=== PATIENT | female | born 1980 | race Hispanic/Latino ===

== ENCOUNTER → 2020-01-17 | Outpatient (CLI) | payer OTHER ==
[~2020-01-17] MED LIST: PREN-154 PO
[2020-01-17 10:36] LABS: HEMATOCRIT 37.4 % (36-48); MEAN CORPUSCULAR HEMOGLOBIN 32.7 pg (27.0-33.0); MEAN CORPUSCULAR HGB CONC 32.9 g/dL (32.0-36.0); MEAN CORPUSCULAR VOLUME 99.5 fL (79-99); RED BLOOD CELL COUNT(AUTO) 3.76 MIL/uL (4.00-5.50); RED CELL DISTRIBUTION WIDTH 14.6 % (11.0-15.5); WHITE BLOOD COUNT (AUTO) 7.5 K/uL (4.8-10.8)
[2020-01-17 10:52] LABS: ALBUMIN 3.1 g/dL (3.5-5.0); BILIRUBIN,TOTAL 0.5 mg/dL (0.2-1.0); CREATININE 0.5 mg/dL (0.5-1.5); POTASSIUM 3.6 mmol/L (3.5-5.1); TOTAL PROTEIN, SERUM 6.7 g/dL (6.0-8.3)
[2020-01-18 08:11] LABS: HEPATITIS Bs ANTIGEN SCREEN P Negative (Negative)
[2020-01-18 12:26] LABS: RAPID PLASMA REAGIN NONREACTIVE (NONREACTIVE)
== END | disposition home or self-care (01) ==
LOC: LAB 09:36
PROVIDERS: ATTEND Internal Medicine
DX: O09.519 Supervision of elderly primigravida, unspecified trimester (principal); Z3A.00 Weeks of gestation of pregnancy not specified
CPT/HCPCS: 36415; 80053; 82950; 85027; 86592; 86701; 86762; 86790; 86850; 86900; 86901; 87088; 87340; 87390

== ENCOUNTER → 2020-03-12 | Outpatient (CLI) | payer OTHER | END | disposition home or self-care (01) | LOC: LAB 11:04 | PROVIDERS: ATTEND Internal Medicine | DX: Z34.83 Encounter for supervision of other normal pregnancy, third trimester (principal); Z3A.37 37 weeks gestation of pregnancy | CPT/HCPCS: 87802 ==

== ENCOUNTER 2020-03-13 14:00 | Observation (INO) | payer OTHER | END 2020-03-24 15:00 | disposition home or self-care (01) | LOC: EDSTATUS 03-17 09:00 → LDH 03-24 12:57 | PROVIDERS: ADMIT Internal Medicine; ATTEND Internal Medicine | DX: O42.92 Full-term premature rupture of membranes, unspecified as to length of time between rupture and onset of labor (principal); R05 Cough; R50.9 Fever, unspecified; Z88.0 Allergy status to penicillin; Z88.2 Allergy status to sulfonamides; Z91.040 Latex allergy status; Z3A.38 38 weeks gestation of pregnancy | CPT/HCPCS: G0378 ×2 ==

== ENCOUNTER 2020-03-26 13:00 | Inpatient (IN) | payer OTHER ==
[~2020-03-26] VITALS: Ht 160 cm; Wt 72.6 kg
[2020-03-26] MEDS ORDERED: PROMETHAZINE HCL 25 MG/ML 1ML AMPULE IM PRN (15:15)
[2020-03-26] MEDS ORDERED: NALOXONE HCL 0.4 MG/1 ML ML IV PRN (15:15)
[2020-03-26] MEDS ORDERED: ROPIVACAINE 0.2% 100ML VIAL 100 ML EP SCH (15:15)
[2020-03-26] MEDS ORDERED: LACTATED RINGERS 500 ML 500 ML IV PRN (15:15)
[2020-03-26] MEDS ORDERED: OXYTOCIN-LR 20 UNITS/1000 ML 1,000 ML IV SCH (15:15)
[2020-03-26] MEDS ORDERED: EPHEDRINE SULFATE 50 MG/ML AMPULE IVP PRN (15:15)
[2020-03-26] MEDS ORDERED: MEPERIDINE-PF 50 MG/ML SYG IVP PRN (15:15)
[2020-03-26 17:30] LABS: HEMATOCRIT 36.2 % (36-48); MEAN CORPUSCULAR HGB CONC 33.1 g/dL (32.0-36.0); MEAN CORPUSCULAR VOLUME 96.5 fL (79-99); RED BLOOD CELL COUNT(AUTO) 3.75 MIL/uL (4.00-5.50); RED CELL DISTRIBUTION WIDTH 14.6 % (11.0-15.5); WHITE BLOOD COUNT (AUTO) 10.1 K/uL (4.8-10.8)
[2020-03-26 17:38] LABS: APPEARANCE,URINE Clear (CLEAR); BILIRUBIN,URINE Negative (NEGATIVE); COLOR,URINE Yellow (YELLOW); GLUCOSE, URINE (UA) Negative (NEGATIVE); KETONES,URINE Negative (NEGATIVE); LEUKOCYTE ESTERASE ,URINE Small (NEGATIVE); NITRATE,URINE Negative (NEGATIVE); OCCULT BLOOD,URINE Negative (NEGATIVE); PROTEIN,URINE Negative (NEGATIVE); UROBILINOGEN,URINE 0.2 mg/dL (0.2-1.0)
[2020-03-26] MEDS ORDERED: DINOPROSTONE 10 MG VAGINAL SUPP VG SCH (17:45)
[2020-03-26 18:05] LABS: BACTERIA,URINE Few /HPF (None Seen); MUCUS,URINE Few LPF (None Seen); SQUAMOUS EPITHELIAL CELL,UR Few /HPF (0-2)
[2020-03-26] MEDS: LACTATED RINGERS 1000ML 1,000 ML IV PRN (20:35)
[2020-03-26] MEDS ORDERED: OXYTOCIN 10 USP UNITS/ML 20 UNIT in LACTATED RINGERS 1000ML 1,000 ML IV SCH (22:00)
[2020-03-27] MEDS: LACTATED RINGERS 1000ML 1,000 ML IV PRN (04:10)
[2020-03-27] MEDS ORDERED: LIDOCAINE HCL 1% 20 ML VIAL ONE (07:33)
[2020-03-27] MEDS ORDERED: METHYLERGONOVINE MALEATE 0.2 MG/1 ML ML ONE (07:33)
[2020-03-27] MEDS ORDERED: ACETAMINOPHEN 325 MG TAB PO PRN (08:15)
[2020-03-27] MEDS ORDERED: ACETAMINOPHEN-CODEINE 300/30MG TAB PO PRN (08:15)
[2020-03-27] MEDS ORDERED: DIPH,PERTUSS(ACELL),TET VAC/PF 0.5 ML VIAL IM PRN (08:15)
[2020-03-27] MEDS ORDERED: IBUPROFEN 600 MG TABLET PO PRN ×2 (08:15→20:30)
[2020-03-27] MEDS ORDERED: OXYTOCIN-LR 20 UNITS/1000 ML 1,000 ML IV SCH ×2 (08:15→08:30)
[2020-03-27] MEDS ORDERED: LANOLIN 30GM OINTMENT TP PRN (08:15)
[2020-03-27] MEDS ORDERED: WITCH HAZEL 1 PAD TP PRN (08:15)
[2020-03-27] MEDS ORDERED: MEASLES/MUMPS/RUBELLA VACCINE, LIVE 0.5 ML/VIAL SQ PRN (08:15)
[2020-03-27] MEDS ORDERED: BENZOCAINE/LANOLIN/ALOE VERA 60 ML AEROSOL TP PRN (08:15)
[2020-03-27 09:50] VITALS: BP 113/67
[2020-03-27] MEDS: DOCUSATE SODIUM 100 MG CAP PO SCH ×2 (10:20→20:50)
[2020-03-27] MEDS ORDERED: PREN-154 PO (11:29)
[2020-03-27 11:55] VITALS: BP 123/68
[2020-03-27 16:30] VITALS: BP 116/68
[2020-03-27] MEDS ORDERED: IBUPROFEN 600 MG TABLET ONE (20:46)
[2020-03-27 20:47] VITALS: BP 117/72
[2020-03-27 23:17] VITALS: BP 131/73
[2020-03-28 03:31] VITALS: BP 125/72
[2020-03-28 07:20] VITALS: BP 120/78
[2020-03-28 08:14] LABS: HEPATITIS Bs ANTIGEN SCREEN P Negative (Negative)
[2020-03-28] MEDS: DOCUSATE SODIUM 100 MG CAP PO SCH (08:40)
== END 2020-03-28 11:30 | disposition home or self-care (01) | DRG 805 ==
LOC: LDH 15:07 → WSH 03-27 09:50
PROVIDERS: ADMIT Internal Medicine; ATTEND Internal Medicine
PROC: 10E0XZZ Delivery of Products of Conception, External Approach (ICD-10-PCS; principal; 2020-03-26)
PROC: 0HQ9XZZ Repair Perineum Skin, External Approach (ICD-10-PCS; 2020-03-26)
PROC: 10907ZC Drainage of Amniotic Fluid, Therapeutic from Products of Conception, Via Natural or Artificial Opening (ICD-10-PCS; 2020-03-26)
PROC: 3E033VJ Introduction of Other Hormone into Peripheral Vein, Percutaneous Approach (ICD-10-PCS; 2020-03-26)
PROC: 3E0R3BZ Introduction of Anesthetic Agent into Spinal Canal, Percutaneous Approach (ICD-10-PCS; 2020-03-26)
PROC: 00HU33Z Insertion of Infusion Device into Spinal Canal, Percutaneous Approach (ICD-10-PCS; 2020-03-26)
PROC: 3E0234Z Introduction of Serum, Toxoid and Vaccine into Muscle, Percutaneous Approach (ICD-10-PCS; 2020-03-26)
PROC: 3E0134Z Introduction of Serum, Toxoid and Vaccine into Subcutaneous Tissue, Percutaneous Approach (ICD-10-PCS; 2020-03-26)
DX: O98.52 Other viral diseases complicating childbirth (principal); U07.1 COVID-19; Z37.0 Single live birth; O41.03X0 Oligohydramnios, third trimester, not applicable or unspecified; O24.429 Gestational diabetes mellitus in childbirth, unspecified control; O70.0 First degree perineal laceration during delivery; Z3A.39 39 weeks gestation of pregnancy; Z23 Encounter for immunization
CPT/HCPCS: 36415; 81001; 82947; 85027; 86592; 86701; 86850; 86900; 86901; 87340; 87390; 90715; A4314; A4351; G0378; J2175; J2210; J2550; J2590; J2795; J7120; U0003